=== PATIENT | male | born 1995 | race Caucasian/White ===

== ENCOUNTER 2022-02-16 17:27 | Inpatient (IN) ==
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
[2022-02-16 19:12] LABS: Appearance Urine Cloudy (Clear); Bilirubin Urine Negative (Negative); Blood Urine Negative (Negative); Color Urine Yellow; Glucose Urine UA Negative (Negative); Ketones Urine Negative (Negative); Leukocyte Esterase Urine Negative (Negative); Nitrite Urine Negative (Negative); Protein Urine Negative (Negative); Specific Gravity Urine 1.007 (1.000-1.030); Urobilinogen Urine Negative (Negative); pH Urine 6.5 (4.5-7.5)
[2022-02-16] MEDS ORDERED: LORazepam 1 MG TAB SL STA (19:20)
[2022-02-16 19:24] LABS: Hematocrit (blood only) 45.8 % (42-52); Hemoglobin 15.6 g/dL (14.0-18.0); Mean Corpuscular Hemoglobin 29.6 pg (25-34); Mean Corpuscular Hgb Conc 34.1 g/dL (32-36); Mean Corpuscular Volume 86.9 fL (80-100); Mean Platelet Volume 9.8 fL (7.4-10.4); Platelet Count 336 K/uL (130-400); RDW Coefficient of Variation 12.8 % (11.5-14.5); RDW Standard Deviation 40.5 fL (36.4-46.3); Red Blood Count 5.27 M/uL (4.7-6.1); White Blood Count 8.86 K/uL (4.8-10.8)
[2022-02-16 19:35] LABS: Bacteria Urine Negative (Negative); Epithelial Cell Urine 0-5 /lpf (0-5); RBC Urine 0-4 /hpf (0-4); WBC Urine 0-5 /hpf (0-5)
[2022-02-16 19:37] LABS: Amphetamines+Metham, Urine Neg (Neg); Barbiturates, Urine Neg (Neg); Benzodiazepine, Urine Neg (Neg); Cocaine, Urine Neg (Neg); MDMA (Ecstacy), Urine Neg (Neg); Methadone, Urine Neg (Neg); Opiate, Urine Neg (Neg); Phencyclidine, Urine Neg (Neg)
[2022-02-16 19:49] LABS: Acetaminophen < 3 ug/ml (10-30); Salicylate < 3.0 mg/dl (3.0-30)
[2022-02-16 19:50] LABS: Anion Gap 9 (3-11); Blood Urea Nitrogen 20 mg/dl (6-23); Carbon Dioxide 27 mmol/L (21-32); Chloride 101 mmol/L (98-107); Potassium 3.8 mmol/L (3.5-5.1); Sodium 137 mmol/L (136-145)
[2022-02-16 19:51] LABS: Alanine Aminotransferase 18 U/L (7-52); Albumin Globulin Ratio 1.8 (0.9-2); Albumin Level 4.6 gm/dl (3.4-5.0); Alkaline Phosphatase 44 U/L (34-104); Aspartate Aminotransferase 19 U/L (13-39); BUN Creatinine Ratio 16.9 (10-20); Bilirubin,Total 0.6 mg/dl (0.2-1.0); Calcium 9.2 mg/dl (8.5-10.1); Est GFR (African American) 98.1 ml/min; Est GFR (Non-African American) 84.7 ml/min; Globulin 2.6 gm/dl (2.5-4.0); Glucose 82 mg/dl (70-99(Fasting)); Total Protein 7.2 gm/dl (6.0-8.3)
[2022-02-16 19:56] LABS: Basophils # (auto) 0.04 K/uL (0-0.2); Basophils % (auto) 0.5 %; Eosinophils # (auto) 0.08 K/uL (0-0.5); Eosinophils % (auto) 0.9 %; Immature Granulocytes # (auto) 0.02 K/uL (0.00-0.02); Immature Granulocytes % (auto) 0.2 %; Lymphocytes # (auto) 3.14 K/uL (1.2-3.4); Lymphocytes % (auto) 35.4 %; Monocytes # (auto) 0.61 K/uL (0.11-0.59); Monocytes % (auto) 6.9 %; Neutrophils # (auto) 4.97 K/uL (1.4-6.5); Neutrophils % (auto) 56.1 %
[2022-02-16] MEDS ORDERED: NICOTINE 14 MG/24 HR PATCH TD STA (20:54)
[2022-02-16] MEDS ORDERED: hydrOXYzine HCl 25 MG TAB PO PRN ×2 (21:54)
[2022-02-16] MEDS ORDERED: SODIUM CHLORIDE 0.65% NA SOLN 45 ML (OCEAN) PRN (21:54)
[2022-02-16] MEDS ORDERED: ACETAMINOPHEN 325 MG TAB PO PRN (21:54)
[2022-02-16] MEDS ORDERED: MAGNESIUM HYDROXIDE SUSP 30 ML UDC PO PRN (21:54)
[2022-02-16] MEDS ORDERED: BISMUTH SUBSALICYLATE LIQD 236 ML PO PRN (21:54)
[2022-02-16] MEDS ORDERED: ALUMINUM/MAGNESIUM SUSP 30 ML UDC PO PRN (21:54)
[2022-02-16] MEDS ORDERED: LORazepam 1 MG TAB PO PRN (21:55)
[2022-02-17] MEDS ORDERED: haloperidoL 5 MG TAB PO PRN (07:36)
[2022-02-17] MEDS ORDERED: HALOPERIDOL LACTATE 5 MG/ML 1 ML VIAL IM PRN (07:39)
[2022-02-17] MEDS ORDERED: LORazepam 2 MG/1 ML VIAL IM PRN (07:42)
[2022-02-17] MEDS ORDERED: BENZTROPINE MESYLATE 1 MG/ML 2 ML AMP IM PRN (07:43)
--- NOTE | 2022-02-17 09:57 | History & Physical ---
Date of Service February 17, 2022 Impression / Recommendations Impression 27 yo male presents with poor decision making, hx of obsessive behavior, rigidity around his political views, made suicidal statements via text if correctional officer captain in [place]. He continues to contact former co-worker despite legal consequences. The patient is angry but without loose associations, flight of ideas, or disorganized behavior. He feels entitled to his views and he is not expressing any bizarre delusions or paranoia. He has consistently denied SI throughout his ED and now hospital course. Irritability may be in part due to kratom withdrawal which [place] fall under [place] mental health law. (1) Impulse control disorder, unspecified: The patient was admitted to the [facility] ([facility] inpatient [facility] health unit) on q15 min checks (behavioral with suicide precautions) for safety. The patient is not particularly agreeable to available therapies as he is hyperfocussed on his rights being violated and is acting this out as disrespect to staff. As it does not appear that he has psychosis or star interfering with his ability to care for himself, especially with family support we will move toward discharge planning. Inventory Assets Strengths: family support, employed Needs: would benefit from insurance and outpatient therapy Suicide Risk Level Suicide Risk Level: Low (q15 min observation checks) Suicide Risk Level Comments: no prior attempts, no hx of SIB, is future focussed with return to work. Risk Factors Assessment Male: Yes Do You Have Access To A Gun?: No (father has weapons but all are stored in a lock safe & only dad has combo) Health Problems: No Previous Attempt: No Family History of Suicide: No Previous Psychiatric Hospitalization: No Protective Factors Assessment Employed: Yes ([employer]) Supportive Family: Yes Psychiatric History Identifying Data MAXIME SCHNEIDER is a 27-year-old M who currently lives in [place] with his parents, has a history of stalking charges, and was admitted on 02/16/22 21:25 on a 302 involuntary commitment for suicidal threats. Chief Complaint "It was a metaphor, I just wanted the officer to know how this stuff messes with people's lives". History of Present Illness Maxime has no history of SI or SIB (per patient and father Prasanna [phone]). Approximately 4 1/2 years ago he became obsessed with a co-worker in [place] and continued to contact the woman as they both moved despite a no contact order resulting in "like a month" of long term time reportedly on felony stalking charges. He reports spending $40,000 between legal fees and fines and had to move home for support. 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 His father confirms that prior to the stalking charge his son had only been in trouble once in high school for ripping down a sign at school and he wasn't able to walk at graduation. Maxime is now working at [employer] and it is going well but he reports reaching out the woman again for support after which he was contacted by Detective Newman of the [facility]. The patient felt slighted and texted the officer back at least 30 times over the course of a few days and when the texts sounded suicidal the local authorities were contacted for a safety check. Copies of the texts were reviewed and he refers to feeling like a gun is pointed at his head or blowing his brains out. The patient consistently denied that he was suicidal in the ED but became increasingly upset/disrespectful when there were discussions about hospitalization. Maxime st monroes this is because he doesn't have insurance and didn't want a bill nor did he want to lose his job at [employer] as it is going well there. 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 Again, he does not make threatening statements re: his ideology. This am he was focussed on his rights and in that context was checking which doors were locked and was disrespectful to staff. He did break the child lock on the unit refigerator. He was calmer after a prn Ativan and made some statement of feeling like he was withdrawing from kratom which he uses to "feel relaxed" and uses some MJ but much less than in the past where he used wax. Past Psychiatric History Previous Psych History: none Current Psychiatric Diagnosis: None Outpatient Services: had some court ordered therapy Do You Have Access To A Gun?: No (father has weapons but all are stored in a lock safe & only dad has combo) History of Previous Suicide Attempt: No Past Medication Trials: none Allergies Allergy/AdvReac Type Severity Reaction Status Date / Time sulfur Allergy Uncoded 02/16/22 22:03 Family History Family History of: Doesn't Know Alcohol History Hx of Alcohol Use Over the Past 12 Months: Yes (4-6 drinks, 2-4x/month) AUDIT Total Score: 8 Smoking Use Have You Smoked or Used Tobacco Products in the Last 30 Days: Yes tobacco type: e-cigarettes and smokeless tobacco Smoking Status: Current every day smoker Substance History Hx of Prescription Med Misuse Over the Past 12 Months: No Hx of Over the Counter Med Misuse Over the Past 12 Months: No Hx of Inhalent Misuse Over the Past 12 Months: No Hx of Organic Substance Use Over the Past 12 Months: Yes (Marijuana, daily CBD use) Hx of Illegal Substances/Street Drug Use Over Past 12 Months: Yes (Kratom daily; 2 capsules, extraction shots (drinks)) Problems as a Result of Past Substance Use: None Identified Personal History Living Arrangements: Home Highest Grade Completed: High School Graduate 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[employer]) Marital Status: Single Number Of Children: 0 Beliefs That Will Affect Care: None Current Legal Problems: Yes (reportedly off probation but may have violated a current no contact order) Hx Traumatic Life Events: No Patient History Medical History (Updated 02/17/22 @ 10:10 by Susana Ang MD) No active medical problems Social History Smoking Status: Current every day smoker Tobacco Type: E-cigarettes / Vaping and Smokeless Tobacco (Dip or Chew) Preferred Language: Syriac Communication Ability: Effective Bellstand Attendant Required: No Beliefs That Will Affect Care: None Feels Safe at Home: Yes Assistive Devices: Glasses Review of Systems Review of Systems: All systems reviewed & are unremarkable except as noted in HPI & below Physical Exam Psychiatric: Orientation: alert and oriented x 3 Apperance: appropriately dressed and appropriately groomed Eye Contact: good eye contact Motor Behavior: no abnormal motor movements Speech: normal rate/rhythm/volume of speech Affect: + constricted affect Mood: + irritable mood Thought Process: goal directed thought process Thought Content: reality based without delusions ("I just don't understand why she misrepresents things.") Suicidal Thoughts: denies suicidal thoughts Homicidal Thoughts: denies homicidal thoughts Hallucinations: no auditory hallucinations and no visual hallucinations Cognition: attention grossly intact and language grossly intact Estimated Intelligence: consistent with education level Insight: + limited insight Judgement: + limited judgement Vital Signs (Past 24 Hours): Last Vital Signs Temp 36.4 C L 02/17/22 06:33 Pulse 67 02/17/22 06:35 Resp 16 02/17/22 06:33 BP 121/75 02/17/22 06:35 Pulse Ox 98 02/16/22 21:28 Exam Statement: A physical exam was performed in the ED by Dr. Herrera for the purposes of medical clearance. I accept that physical as correct and adequate for the purposes of the inpatient physical exam. Results & Data ([facility]) Laboratory Results Laboratory Results - last 24 hr 02/16/22 02/16/22 02/16/22 17:45 17:45 17:45 WBC RBC Hgb Hct MCV MCH MCHC RDW Std Deviation RDW Coeff of [place] Plt Count MPV Immature Gran % (Auto) Neut % (Auto) Lymph % (Auto) [place] % (Auto) Eos % (Auto) Baso % (Auto) Neut # (Auto) Lymph # (Auto) [place] # (Auto) Eos # (Auto) Baso # (Auto) Immature Gran # (Auto) Sodium Potassium Chloride Carbon Dioxide Anion Gap BUN Creatinine Est Cr Clr Drug Dosing Est GFR ( Amer) Est GFR (Non-Af Amer) BUN/Creatinine Ratio Glucose Calcium Total Bilirubin AST ALT Alkaline Phosphatase Total Protein Albumin Globulin Albumin/Globulin Ratio TSH Urine Color Yellow Urine Appearance Cloudy A Urine pH 6.5 Ur Specific [place] 1.007 Urine Protein Negative Urine Glucose (UA) Negative Urine Ketones Negative Urine Blood Negative Urine Nitrite Negative Urine Bilirubin Negative Urine Urobilinogen Negative Ur Leukocyte Esterase Negative Urine RBC 0-4 Urine WBC 0-5 Ur Epithelial Cells 0-5 Urine Bacteria Negative Salicylates Urine Opiates Screen Neg Ur Methadone, Qual Neg Acetaminophen Urine Barbiturates Neg Ur Phencyclidine (PCP) Neg U Amphetamin/Meth Scrn Neg MDMA (Ecstasy) Screen Neg U Benzodiazepines Scrn Neg Ur Cocaine Metabolite Neg U Marijuana (THC) Screen Pos H U Marijuana THC Carboxy Pending Drug Screen Comment Pending Ethyl Alcohol mg/dL SARS-CoV-2, RNA, NAAT 02/16/22 02/16/22 02/16/22 19:10 19:10 19:10 WBC 8.86 RBC 5.27 Hgb 15.6 Hct 45.8 MCV 86.9 MCH 29.6 MCHC 34.1 RDW Std Deviation 40.5 RDW Coeff of [place] 12.8 Plt Count 336 MPV 9.8 Immature Gran % (Auto) 0.2 Neut % (Auto) 56.1 Lymph % (Auto) 35.4 [place] % (Auto) 6.9 Eos % (Auto) 0.9 Baso % (Auto) 0.5 Neut # (Auto) 4.97 Lymph # (Auto) 3.14 [place] # (Auto) 0.61 H Eos # (Auto) 0.08 Baso # (Auto) 0.04 Immature Gran # (Auto) 0.02 Sodium 137 Potassium 3.8 Chloride 101 Carbon Dioxide 27 Anion Gap 9 BUN 20 Creatinine 1.18 Est Cr Clr Drug Dosing Not Reportable Est GFR ( Amer) 98.1 Est GFR (Non-Af Amer) 84.7 BUN/Creatinine Ratio 16.9 Glucose 82 Calcium 9.2 Total Bilirubin 0.6 AST 19 ALT 18 Alkaline Phosphatase 44 Total Protein 7.2 Albumin 4.6 Globulin 2.6 Albumin/Globulin Ratio 1.8 TSH 1.783 Urine Color Urine Appearance Urine pH Ur Specific [place] Urine Protein Urine Glucose (UA) Urine Ketones Urine Blood Urine Nitrite Urine Bilirubin Urine Urobilinogen Ur Leukocyte Esterase Urine RBC Urine WBC Ur Epithelial Cells Urine Bacteria Salicylates Urine Opiates Screen Ur Methadone, Qual Acetaminophen Urine Barbiturates Ur Phencyclidine (PCP) U Amphetamin/Meth Scrn MDMA (Ecstasy) Screen U Benzodiazepines Scrn Ur Cocaine Metabolite U Marijuana (THC) Screen U Marijuana THC Carboxy Drug Screen Comment Ethyl Alcohol mg/dL SARS-CoV-2, RNA, NAAT 02/16/22 02/16/22 02/16/22 19:10 19:10 19:10 WBC RBC Hgb Hct MCV MCH MCHC RDW Std Deviation RDW Coeff of [place] Plt Count MPV Immature Gran % (Auto) Neut % (Auto) Lymph % (Auto) [place] % (Auto) Eos % (Auto) Baso % (Auto) Neut # (Auto) Lymph # (Auto) [place] # (Auto) Eos # (Auto) Baso # (Auto) Immature Gran # (Auto) Sodium Potassium Chloride Carbon Dioxide Anion Gap BUN Creatinine Est Cr Clr Drug Dosing Est GFR ( Amer) Est GFR (Non-Af Amer) BUN/Creatinine Ratio Glucose Calcium Total Bilirubin AST ALT Alkaline Phosphatase Total Protein Albumin Globulin Albumin/Globulin Ratio TSH Urine Color Urine Appearance Urine pH Ur Specific [place] Urine Protein Urine Glucose (UA) Urine Ketones Urine Blood Urine Nitrite Urine Bilirubin Urine Urobilinogen Ur Leukocyte Esterase Urine RBC Urine WBC Ur Epithelial Cells Urine Bacteria Salicylates < 3.0 L Urine Opiates Screen Ur Methadone, Qual Acetaminophen < 3 L Urine Barbiturates Ur Phencyclidine (PCP) U Amphetamin/Meth Scrn MDMA (Ecstasy) Screen U Benzodiazepines Scrn Ur Cocaine Metabolite U Marijuana (THC) Screen U Marijuana THC Carboxy Drug Screen Comment Ethyl Alcohol mg/dL < 10.0 SARS-CoV-2, RNA, NAAT NEGATIVE Current Inpatient Medications Current Inpatient Medications: Current Inpatient Medications Acetaminophen (Acetaminophen 325 Mg Tab) 650 mg PO Q4H PRN PRN Reason: Headache or Minor Fever Stop: 03/18/22 21:53 Al Hydrox/Mg Hydrox/Simethicone (Aluminum/Magnesium Susp 30 Ml Udc) 30 ml PO Q4H PRN PRN Reason: GI Upset Stop: 03/18/22 21:53 Benztropine Mesylate (Benztropine Mesylate 1 Mg/Ml 2 Ml Amp) 1 mg IM Q4 PRN PRN Reason: give with IM Haldol Stop: 03/19/22 07:42 Bismuth Subsalicylate (Bismuth Subsalicylate Liqd 236 Ml) 15 ml PO PRN PRN PRN Reason: Loose Stool Stop: 03/18/22 21:53 Haloperidol (Haloperidol 5 Mg Tab) 5 mg PO Q4 PRN PRN Reason: Agitation Stop: 03/19/22 07:35 Haloperidol Lactate (Haloperidol Lactate 5 Mg/Ml 1 Ml Vial) 10 mg IM Q4 PRN PRN Reason: Agitation Stop: 03/19/22 07:38 Hydroxyzine HCl (Hydroxyzine Hcl 25 Mg Tab) 50 mg PO HSZ PRN PRN Reason: Insomnia Stop: 03/18/22 21:53 Hydroxyzine HCl (Hydroxyzine Hcl 25 Mg Tab) 25 mg PO Q4H PRN PRN Reason: Anxiety Stop: 03/18/22 21:53 Lorazepam (Lorazepam 1 Mg Tab) 1 mg PO Q6 PRN PRN Reason: Agitation Stop: 03/18/22 21:54 Last Admin: 02/17/22 07:30 Dose: 1 mg Documented by: Lorazepam (Lorazepam 2 Mg/1 Ml Vial) 2 mg IM Q4H PRN; Protocol PRN Reason: Agitation Stop: 03/19/22 07:41 Magnesium Hydroxide (Magnesium Hydroxide Susp 30 Ml Udc) 30 ml PO DAILY PRN PRN Reason: Constipation Stop: 03/18/22 21:53 Sodium Chloride (Sodium Chloride 0.65% Na Soln 45 Ml ([place])) 1 - 2 sprays NA PRN PRN PRN Reason: Nasal Dryness/Congestion Stop: 03/18/22 21:53
--- NOTE | 2022-02-17 10:49 | Discharge Summary ---
Date of Service February 17, 2022 History of Present Illness Saad has no history of SI or SIB (per patient and father Prasanna [phone]). Approximately 4 1/2 years ago he became obsessed with a co-worker in [place] and continued to contact the woman as they both moved despite a no contact order resulting in "like a month" of group home time reportedly on felony stalking charges. He reports spending $40,000 between legal fees and fines and had to move home for support. 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 His father confirms that prior to the stalking charge his son had only been in trouble once in high school for ripping down a sign at school and he wasn't able to walk at graduation. Saad is now working at [employer] and it is going well but he reports reaching out the woman again for support after which he was contacted by Detective Newman of the [facility]. The patient felt slighted and texted the officer back at least 30 times over the course of a few days and when the texts sounded suicidal the local authorities were contacted for a safety check. Copies of the texts were reviewed and he refers to feeling like a gun is pointed at his head or blowing his brains out. The patient consistently denied that he was suicidal in the ED but became increasingly upset/disrespectful when there were discussions about hospitalization. Saad states this is because he doesn't have insurance and didn't want a bill nor did he want to lose his job at [employer] as it is going well there. 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 Again, he does not make threatening statements re: his ideology. This am he was focussed on his rights and in that context was checking which doors were locked and was disrespectful to staff. He did break the child lock on the unit refigerator. He was calmer after a prn Ativan and made some statement of feeling like he was withdrawing from kratom which he uses to "feel relaxed" and uses some MJ but much less than in the past where he used wax. Physical Exam Psychiatric See admission H&P and DOD assessment. Vital Signs (Past 24 Hours) Last Vital Signs Temp 36.4 C L 02/17/22 06:33 Pulse 67 02/17/22 06:35 Resp 16 02/17/22 06:33 BP 121/75 02/17/22 06:35 Pulse Ox 98 02/16/22 21:28 Principal Diagnosis impulse control disorder unspecified Psychiatric Data The patient remained angry about his commitment and disrespectful of staff. He was not interested in further assessment for medication and feels entitled to his behavior. He received a dose of Ativan PO on the morning following admission for escalation of his anger but he made no direct threats. He deescalated on meeting with the psychiatrist. Similar patterns are often seen in patients with a history of arrest/incarceration as feel loss of control/trapped. Given the lack of formal psych history, confirmation that no access to guns, positive family support, and the fact he has been behaviorally appropriate at current job, etc. it was determined that further stay on an involuntary basis would be counter-therapeutic. There does not appear to be any hallcuinations/bizarre delusions/thought disorganization, star, or delirium interfering with his medical decision making. I do suspect the kratom u se/withdrawal is playing some role in his ED presentation but regardless this does not meet criteria for involuntary commitment under [place] mental health law. Prior to discharge we did confirm with [facility] office that there is no active warrant/threat. Certainly is is concerning that Saad continues to contact his stalking victim despite past consequences. He is rigid and obsessional in his thinking but erotomania of this length is very unlikely to respond to acute inpatient treatment and he meets no criteria for medication over objection. Atypical antipsychotics are generally low yield for fixed delusions. He was given information re: community resources for [place] and [place] as he is currently without insurance. He stated he had been in court ordered therapy and did not find it helpful. He was diagnosed with impulse control disorder as his repeated texts to police did not fall under his stalking pattern. He was cautioned that charges could still be pending, especially likely if he contacts the [place] or stalking victim. He voiced understanding and was focussed on return to work. His father was comfortable with discharge based on his history and family interactions. Unfortunately the main intervention for Saad will likely be through the justice system. Day of Discharge Assessment See H&P as discharged within 2 hours of initial assessment. Transition of Care Transition Of Care Record: was reviewed with the patient Advance Directives Advance Directives Information Provided: Yes Advance Directives: No Mental Health Advance Directive: No Advance Directives on File: No Living Will: No Power of Public Health Service Officer: No Advance Directives Reason:: Declines as Mental Health Visit. Suicide Risk Level Suicide Risk Level Comments: no prior attempts, no hx of SIB, is future focussed with return to work. Risk Factors Assessment Male: Yes Do You Have Access To A Gun?: No (father has weapons but all are stored in a lock safe & only dad has combo) Health Problems: No Previous Attempt: No Family History of Suicide: No Previous Psychiatric Hospitalization: No Protective Factors Assessment Employed: Yes ([employer]) Supportive Family: Yes Tobacco Cessation at Discharge Tobacco Cessation Medication Prescribed at Discharge: Offered & Pt Refused Total Time Total Time Includes: Examination of the patient, Discharge Planning and As well as (collateral from father) Discharge Data Lab Results 02/16/22 02/16/22 02/16/22 17:45 17:45 19:10 WBC 8.86 RBC 5.27 Hgb 15.6 Hct 45.8 MCV 86.9 MCH 29.6 MCHC 34.1 RDW Std Deviation 40.5 RDW Coeff of [place] 12.8 Plt Count 336 MPV 9.8 Immature Gran % (Auto) 0.2 Neut % (Auto) 56.1 Lymph % (Auto) 35.4 [place] % (Auto) 6.9 Eos % (Auto) 0.9 Baso % (Auto) 0.5 Neut # (Auto) 4.97 Lymph # (Auto) 3.14 [place] # (Auto) 0.61 H Eos # (Auto) 0.08 Baso # (Auto) 0.04 Immature Gran # (Auto) 0.02 Sodium Potassium Chloride Carbon Dioxide Anion Gap BUN Creatinine Est Cr Clr Drug Dosing Est GFR ( Amer) Est GFR (Non-Af Amer) BUN/Creatinine Ratio Glucose Calcium Total Bilirubin AST ALT Alkaline Phosphatase Total Protein Albumin Globulin Albumin/Globulin Ratio TSH Urine Color Yellow Urine Appearance Cloudy A Urine pH 6.5 Ur Specific [place] 1.007 Urine Protein Negative Urine Glucose (UA) Negative Urine Ketones Negative Urine Blood Negative Urine Nitrite Negative Urine Bilirubin Negative Urine Urobilinogen Negative Ur Leukocyte Esterase Negative Urine RBC 0-4 Urine WBC 0-5 Ur Epithelial Cells 0-5 Urine Bacteria Negative Salicylates Urine Opiates Screen Neg Ur Methadone, Qual Neg Acetaminophen Urine Barbiturates Neg Ur Phencyclidine (PCP) Neg U Amphetamin/Meth Scrn Neg MDMA (Ecstasy) Screen Neg U Benzodiazepines Scrn Neg Ur Cocaine Metabolite Neg U Marijuana (THC) Screen Pos H Ethyl Alcohol mg/dL SARS-CoV-2, RNA, NAAT 02/16/22 02/16/22 02/16/22 19:10 19:10 19:10 WBC RBC Hgb Hct MCV MCH MCHC RDW Std Deviation RDW Coeff of [place] Plt Count MPV Immature Gran % (Auto) Neut % (Auto) Lymph % (Auto) [place] % (Auto) Eos % (Auto) Baso % (Auto) Neut # (Auto) Lymph # (Auto) [place] # (Auto) Eos # (Auto) Baso # (Auto) Immature Gran # (Auto) Sodium 137 Potassium 3.8 Chloride 101 Carbon Dioxide 27 Anion Gap 9 BUN 20 Creatinine 1.18 Est Cr Clr Drug Dosing Not Reportable Est GFR ( Amer) 98.1 Est GFR (Non-Af Amer) 84.7 BUN/Creatinine Ratio 16.9 Glucose 82 Calcium 9.2 Total Bilirubin 0.6 AST 19 ALT 18 Alkaline Phosphatase 44 Total Protein 7.2 Albumin 4.6 Globulin 2.6 Albumin/Globulin Ratio 1.8 TSH 1.783 Urine Color Urine Appearance Urine pH Ur Specific [place] Urine Protein Urine Glucose (UA) Urine Ketones Urine Blood Urine Nitrite Urine Bilirubin Urine Urobilinogen Ur Leukocyte Esterase Urine RBC Urine WBC Ur Epithelial Cells Urine Bacteria Salicylates < 3.0 L Urine Opiates Screen Ur Methadone, Qual Acetaminophen < 3 L Urine Barbiturates Ur Phencyclidine (PCP) U Amphetamin/Meth Scrn MDMA (Ecstasy) Screen U Benzodiazepines Scrn Ur Cocaine Metabolite U Marijuana (THC) Screen Ethyl Alcohol mg/dL SARS-CoV-2, RNA, NAAT 02/16/22 02/16/22 19:10 19:10 WBC RBC Hgb Hct MCV MCH MCHC RDW Std Deviation RDW Coeff of [place] Plt Count MPV Immature Gran % (Auto) Neut % (Auto) Lymph % (Auto) [place] % (Auto) Eos % (Auto) Baso % (Auto) Neut # (Auto) Lymph # (Auto) [place] # (Auto) Eos # (Auto) Baso # (Auto) Immature Gran # (Auto) Sodium Potassium Chloride Carbon Dioxide Anion Gap BUN Creatinine Est Cr Clr Drug Dosing Est GFR ( Amer) Est GFR (Non-Af Amer) BUN/Creatinine Ratio Glucose Calcium Total Bilirubin AST ALT Alkaline Phosphatase Total Protein Albumin Globulin Albumin/Globulin Ratio TSH Urine Color Urine Appearance Urine pH Ur Specific [place] Urine Protein Urine Glucose (UA) Urine Ketones Urine Blood Urine Nitrite Urine Bilirubin Urine Urobilinogen Ur Leukocyte Esterase Urine RBC Urine WBC Ur Epithelial Cells Urine Bacteria Salicylates Urine Opiates Screen Ur Methadone, Qual Acetaminophen Urine Barbiturates Ur Phencyclidine (PCP) U Amphetamin/Meth Scrn MDMA (Ecstasy) Screen U Benzodiazepines Scrn Ur Cocaine Metabolite U Marijuana (THC) Screen Ethyl Alcohol mg/dL < 10.0 SARS-CoV-2, RNA, NAAT NEGATIVE Hospital Course (1) Impulse control disorder, unspecified: The patient was admitted to the [facility] on q15 min checks (behavioral with suicide precautions) for safety. The patient is not particularly agreeable to available therapies as he is hyperfocussed on his rights being violated and is acting this out as disrespect to staff. As it does not appear that he has psychosis or star interfering with his ability to care for himself, especially with family support we will move toward discharge planning. Mental Health & Subst Abuse Tx Psychiatrist Name of Psychiatrist: [facility] (only if there is no insurance at all) Psychiatrist's Psychiatric Appointment Comment: [id number], [place], [place] Therapist Name of Therapist: [facility] (only if there is no insurance at all) Therapist's Therapy Appointment Comment: [id number], [place], [place] Global President Name of Global President: None Post Discharge Appointments Primary Care Physician Name Of Family Doctor: [facility] [facility] (only if there is no insura nce at all) Primary Care Provider Appointment Comment: [id number], [place], [place] Smoking Cessation Counseling Tobacco Cessation Medication Prescribed at Discharge: Offered & Pt Refused Discharge Plan Discharge Items Patient Disposition: Home - Self-Care Reason For Visit: UNSPECIFIED DEPRESSION Discharge Diagnosis: impulse control disorder unspecified Activity: Resume your previous activity Non-emergency contact: Primary Care Provider Call non-emergency contact if: you have any medication questions and your symptoms worsen Follow-up/Referrals: PCP,NO [Primary Care Provider] - Diet: Regular Addtl Attending Provider Instructions: SPECIAL CARE INSTRUCTIONS: 1. Follow through with your scheduled aftercare appointments. If unable to keep an appointment, please call to reschedule. 2. You are not taking any medications. Our main recommendations are that you cease contact with [place] authorities and follow any no contact orders so that you don't incur additional charges. 3. Utilize new healthy coping skills, anger management skills, and stress management skills learned during your hospitalization. Journal feelings and process them with a support person. Identify stressors or situations that may result in relapse, deterioration or inappropriate behaviors and develop a plan to deal with those issues. 4. If your coping skills are ineffective and you are in crisis, contact your outpatient providers for direction. If unable to reach your providers, please call the [facility] CRISIS LINE AT , go to the [facility] walk-in center at [address], [address], [place], or go to the closest Emergency Room. 5. Avoid alcohol and un-prescribed drugs. 6. You have been provided with the Mental Health Advance Directives Pamphlet for your review. 7. Your condition is stable for discharge to outpatient level of care, but recovery is an ongoing process. Ifthoughts to harm yourself or others return, follow the safety plan developed during your stay. Planning for a safe return home includes securing weapons. Our treatment team recommends weaponsbe removed from the home until your outpatient provider reassesses your progress. In rare cases where the items themselvescannot be removed, guns and ammunitionshould be secured separatelyand keys stored by a reliable personoutside of the home. If you were admitted on an involuntary commitment, the police or other legal authorities may be involved in this process. AFTERCARE APPOINTMENTS: * Please call your insurance company prior to your scheduled appointment to confirm your aftercare providers are covered. Take your insurance information to your appointments. WHO TO CALL AND WHEN: Medical Emergencies: For questions or emergencies related to your hospital stay, please contact the Inpatient Behavioral Health Unit at [phone]. A coffee urn attendant is on-call 30/03 for the Behavioral Health Unit for emergencies At any time you feel your situation is an emergency, you may also call 911 immediately. Pending Studies at Discharge: No Stand-Alone Forms: My [facility], Smoking Cessation Medications and DC Order Discharge Orders: Discharge Order (Routine); Ordered 02/17/22 Ordered By: Susana Ang Admission Data Admit Date/Time: 02/16/22 21:25 Attending Provider: Susana Ang Admit Provider: Susana Ang Primary Care Provider: PCP,NO Other Interventions: Discharge Summary Assessment (RN) Last Done: 02/17/22 10:51 PSY Interdisciplinary Discharge Planning Last Done: 02/17/22 10:53 Coding Level of Care Code None Diagnoses Impulse control disorder, unspecified F63.9 Comment discharged within hours of H&P (am after admission), stay <24 hrs.
== END 2022-02-17 11:06 | disposition home or self-care (01) | DRG 886 ==
LOC: ED 17:27 → 3S 21:25